=== PATIENT | female | born 1955 | race Two or more races ===

== ENCOUNTER 2025-08-03 11:12 | Inpatient (IN) | payer OTHER ==
[~2025-08-03] VITALS: Ht 157.5 cm; Wt 63.6 kg
--- NOTE | 2025-08-03 11:32 | ECG ---
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
--- NOTE | 2025-08-03 12:00 | ED.PDOC ---
HPI Comments 70y F who presents to the ED for chief complaint of chest pain. Pt states she has been having chest pain since yesterday. Pt states she came yesterday to [facility] and left AMA. Pt otherwise now in the ED, states she chest pain is pressure like in nature, with no associated exacerbating or relieving factors. Pt has noted BP of 155/75 with otherwise stable vitals. Pt denies any other symptoms at this time. Chief Complaint: Chest Pain Time Seen by MD: 11:56 Reviewed Notes: Nurses Notes, Medications, Allergies Allergies: Coded Allergies: NO KNOWN ALLERGIES (Unverified , 08/03/25) Information Source: Patient, Relative Mode of Arrival: Wheelchair Brought in by: family Severity: Moderate Timing: Hours Duration: Since onset Prehospital treatment: None Location: Chest (R), Chest (L) Radiation: No Radiation Quality: Pressure Onset: At Rest Cardiac Risk Factors: None PE Risk Factors: None History of: None Modifying Factors: Nothing Associated Signs and Symptoms: None Past Medical History PAST MEDICAL HISTORY: Dementia Surgical History: Denies all surgeries 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: Denies all WINDOWS PHONE DEVELOPER Hx Family History Family History: Reviewed,noncontributory to illness Social History Smoker: Non-Smoker Alcohol: Denies ETOH Use Drugs: Denies Drug Use Lives In: Home Constitutional: denies: chills, diaphoresis, fatigue, fever, malaise, sweats, weakness, others EENTM: denies: blurred vision, double vision, ear bleeding, ear discharge, ear drainage, ear pain, ear ringing, eye pain, eye redness, hearing loss, mouth pain, mouth swelling, nasal discharge, nose bleeding, nose congestion, nose pain, photophobia, tearing, throat pain, throat swelling, voice changes, others Respiratory: denies: cough, hemoptysis, orthopnea, SOB at rest, shortness of breath, SOB with excertion, stridor, wheezing, others Cardiovascular: reports: chest pain; denies: dizzy spells, diaphoresis, Dyspnea on exertion, edema, irregular heart beat, left arm pain, lightheadedness, palpitations, PND, syncope, others Gastrointestinal: denies: abdomen distended, abdominal pain, blood streaked bowels, constipated, diarrhea, dysphagia, difficulty swallowing, hematemesis, melena, nausea, poor appetite, poor fluid intake, rectal bleeding, rectal pain, vomiting, others Genitourinary: denies: abnormal vagina bleeding, burning, dyspareunia, dysuria, flank pain, frequency, hematuria, incontinence, pain, , vagina discharge, urgency, others Neurological: denies: dizziness, fainting, headache, left sided numbness, left sided weakness, numbness, paresthesia, pre-existing deficit, right sided numbness, right sided weakness, seizure, speech problems, tingling, tremors, weakness, others Musculoskeletal: denies: back pain, gout, joint pain, joint swelling, muscle pain, muscle stiffness, neck pain, others Integumetry: denies: bruises, change in color, change in hair/nails, dryness, laceration, lesions, lumps, rash, wounds, others Allergic/Immunocompromised: denies: Difficulty Healing, Frequent Infections, Hives, Itching, others Hematologic/Lymphatic: denies: anemia, blood clots, easy bleeding, easy bruising, swollen glands, others Endocrine: denies: excessive hunger, excessive sweating, excessive thirst, excessive urination, flushing, intolerance to cold, intolerance to heat, unexplained weight gain, unexplained weight loss, others Psychiatric: denies: anxiety, bipolar disorder, depression, hopeless, panic disorder, schizophrenia, sleepless, suicidal, others All Other Systems: Reviewed and Negative Physical Exam General Appearance: Moderate Distress HEENT: Normal ENT Inspection, Pharynx Normal, TMs Normal Neck: Full Range of Motion, Non-Tender, Normal, Normal Inspection Respiratory: Chest Non-Tender, Lungs Clear, No Accessory Muscle Use, No Respiratory Distress, Normal Breath Sounds Cardiovascular: No Edema, No JVD, No Murmur, No Gallop, Normal Peripheral Pulses, Regular Rate/Rhythm Breast Exam: Deferred Gastrointestinal: No Organomegaly, Non Tender, No Pulsatile Mass, Normal Bowel Sounds, Soft Genitalia: Deferred Pelvic: Deferred Rectal: Deferred Extremities: No calf tenderness, Normal capillary refill, No pedal edema Musculoskeletal : Apperance: Normal Neurologic: housekeeping coordinator II-XII nml as Tested, Motor Weakness, Normal Affect, Normal Mood, No Sensory Deficits Cerebellar Function: Normal Reflexes: Normal Skin: Dry, Normal Color, Warm Lymphatic: No Adenopathy EKG EKG : Pulse Rate (adult): 58 [place]: Normal Cardiac Rhythm: NSR Block: None Hypertrophy: None ST: Normal Was a procedure done? Was a procedure done?: No CP Differential Dx Differential Diagnosis: A-fib, Angina, Electrolyte Disorder, Heart Failure, OR, Pulmonary Embolus, PVC's Other Differential Diagnosis acute coronary syndrome Differential Diagnosis: HTN Essential, HTN Accelerated, Medical NonCompliance Differential Diagnosis: Chest Wall Pain, Pericarditis, Pneumonia X-Ray, Labs, Meds, VS Vital Signs Date Time Temp Pulse Resp B/P (MAP) Pulse Ox O2 Delivery O2 Flow Rate FiO2 08/03/25 14:17 64 08/03/25 12:23 56 08/03/25 12:00 58 08/03/25 11:20 58 08/03/25 11:12 98.4 61 18 155/75 98 98.4 Lab Test 08/03/25 13:02 Range/Units White Blood Count 6.3 4.4-10.8 10^3/uL Red Blood Count 4.24 4.0-5.20 10^6/uL Hemoglobin 12.8 12.2-16.2 g/dL Hematocrit 37.5 36.0-46.0 % Mean Corpuscular Volume 88.5 80.0-100.0 fL Mean Corpuscular Hemoglobin 30.3 28.0-32.0 pg Mean Corpuscular Hemoglobin Concent 34.2 32.0-36.0 g/dL Red Cell Distribution Width 13.9 11.8-14.3 % Platelet Count 202 140-450 10^3/uL Mean Platelet Volume 9.3 6.9-10.8 fL Neutrophils (%) (Auto) 44.9 37.0-80.0 % Lymphocytes (%) (Auto) 42.2 10.0-50.0 % Monocytes (%) (Auto) 9.9 0.0-12.0 % Eosinophils (%) (Auto) 2.2 0.0-7.0 % Basophils (%) (Auto) 0.8 0.0-2.0 % Neutrophils # (Auto) 2.8 1.6-8.6 10 ^3/uL Lymphocytes # (Auto) 2.6 0.4-5.4 10 ^3/uL Monocytes # (Auto) 0.6 0-1.3 10 ^3/uL Eosinophils # (Auto) 0.1 0-0.8 10 ^3/uL Basophils # (Auto) 0.1 0-0.2 10 ^3/uL Nucleated Red Blood Cells 0.0 % Sodium Level 146 H 136-145 mmol/L Potassium Level 3.7 3.5-5.1 mmol/L Chloride Level 111 H 98-107 mmol/L Carbon Dioxide Level 24 20-31 mmol/L Anion Gap 11 5-15 Blood Urea Nitrogen 7 L 9-23 mg/dL Creatinine 0.82 0.550-1.02 mg/dL Glomerular Filtration Rate Calc 76 >90 mL/min BUN/Creatinine Ratio 8.5 L 10.0-20.0 Serum Glucose 99 74-106 mg/dL Calcium Level 8.9 8.7-10.4 mg/dL Current Medications Medications (Trade) Dose Ordered Sig/Garrett Route Start Time Stop Time Status Last Admin Sodium Chloride 500 ml @ 500 mls/hr Q1H ONCE IV 08/03/25 11:30 08/03/25 12:29 DC 08/03/25 12:47 PROCEDURE(s): CXR2 - CHEST TWO VIEWS ROUTINE IMPRESSION: No pulmonary airspace consolidation. Large right paratracheal calcified lesion measuring 5.2 cm, possibly calcified lymph node. This can be further evaluated with a CT chest A CAT scan is recommended which be ordered by the hospitalist. The patient's CBC is within normal limits The chemistry panel with normal limits The patient was given normal saline 500 cc bolus The patient will be admitted at this time Images Reviewed?: Images reviewed and evaluated by me Time of 1ST Reevaluation: 12:30 Reevaluation 1ST: Unchanged Patient Education/Counseling: Diagnosis, Treatment, Prognosis Family Education/Counseling: No Family Present SEPSIS Sepsis Screen Date sepsis recognized/suspect: Aug 03, 2025 Time Sepsis recognized/suspect: 1138 Recent Procedure: No On Antibiotic Therapy: No Respiratory Rate >20: No Heart Rate >90: No Temp<36 C (96.8 F) or >38.3 C: No SBP <90 or MAP <65 mmHG: No New Acute Mental Status Change: No Is the patient on CPAP, BIPAP,: No Physician Orders Urinalysis (08/03/25 11:28) Chest Two Views Routine (08/03/25 11:28) Heplock Iv (08/03/25 11:28) Professional Housing Consultant (08/03/25 11:28) Blood Pressure (08/03/25 11:28) Pulse Oximetry (08/03/25 11:28) Vital Signs Date Time Temp Pulse Resp B/P (MAP) Pulse Ox O2 Delivery O2 Flow Rate FiO2 08/03/25 14:17 64 08/03/25 12:23 56 08/03/25 12:00 58 08/03/25 11:20 58 08/03/25 11:12 98.4 61 18 155/75 98 98.4 Laboratory Tests Test 08/03/25 13:02 White Blood Count 6.3 10^3/uL (4.4-10.8) Medications Medications Dose Ordered Sig/Garrett Route Start Time Stop Time Status Last Admin Dose Admin Sodium Chloride 500 ml @ 500 mls/hr Q1H ONCE IV 08/03/25 11:30 08/03/25 12:29 DC 08/03/25 12:47 Departure 1 Departure Time of Disposition: 14:45 Impression: Primary Impression: Acute chest pain Additional Impression: Acute myocardial ischemia Disposition: ADMITTED INPATIENT Admit to: Tele Condition: Fair Critical Care Note Critical Care Time?: No Stability Stability form required: Yes Unstable for transfer: Telemetry monitoring (Telemetry monitoring required), ED Physician Assesment (Clinical assesment) Heart Score Heart Score: Heart Score Response (Comments) Value History Slightly Suspicious 0 EKG Normal 0 Age >65 2 Risk Factors No known risk factors 0 Troponin Normal limit 0 Total 2 I personally scribed for SANDRO SOLIS MD (ATA) on 08/03/25 at 12:00. Elect ronically submitted by Samantha Owusu ([email or web address]). I personally scribed for SANDRO SOLIS MD (ATA) on 08/03/25 at 12:27. Electronically submitted by Samantha Owusu ([email or web address]). SANDRO SOLIS MD Aug 03, 2025 12:00
--- NOTE | 2025-08-03 12:24 | DVH ---
CHEST RADIOGRAPH Indication: weakness Technique: XY CHEST TWO VIEWS ROUTINE Comparison: None FINDINGS: The cardiac silhouette is demonstrating large right paratracheal calcified lesion measuring 5.2 cm. T he lungs demonstrate no pulmonary airspace consolidation. The pulmonary vasculature is unremarkable. There is no pleural effusion. There is no pneumothorax. Moderate thoracic degenerative disc disease. IMPRESSION: No pulmonary airspace consolidation. Large right paratracheal calcified lesion measuring 5.2 cm, possibly calcified lymph node. This can be further evaluated with a CT chest
[2025-08-03] MEDS: SODIUM CHLORIDE 0.9% 500 ML IV ONE (12:47)
[2025-08-03 13:24] LABS: Hematocrit 37.5 % (36.0-46.0); Hemoglobin 12.8 g/dL (12.2-16.2); Mean Corpuscular Hemoglobin 30.3 pg (28.0-32.0); Mean Corpuscular Volume 88.5 fL (80.0-100.0); Nucleated Red Blood Cells % 0.0 %
[2025-08-03 13:33] LABS: Anion Gap 11 (5-15); Carbon Dioxide 24 mmol/L (20-31); Potassium 3.7 mmol/L (3.5-5.1)
[2025-08-03 13:34] LABS: Calcium 8.9 mg/dL (8.7-10.4); Chloride 111 mmol/L (98-107); Sodium 146 mmol/L (136-145)
[2025-08-03 13:39] LABS: BUN/Creatinine Ratio 8.5 (10.0-20.0); Blood Urea Nitrogen 7 mg/dL (9-23); Glucose 99 mg/dL (74-106)
[2025-08-03] MEDS ORDERED: ONDANSETRON HCL 4 MG/2 ML VIAL IV PRN (16:00)
[2025-08-03] MEDS ORDERED: MORPHINE SULFATE INJ 2 MG/ml SYRG IV PRN (16:00)
[2025-08-03] MEDS ORDERED: NITROGLYCERIN 0.4 MG SL TAB SL PRN (16:00)
--- NOTE | 2025-08-03 16:37 | DVHHPRES ---
History of Present Illness Resident Creating Document: NESS GREEN RESIDENT History of Present Illness The patient is a 70-year-old female with dementia and anxiety disorder who presented yesterday with pressure-like anterior chest pain but left AMA. She returned today with persistent pain. She describes constant chest pressure radiating across the anterior chest and upper abdomen, with shortness of breath overnight, palpitations, dizziness/lightheadedness, generalized weakness, and decreased oral intake with weight loss. She denies nausea, vomiting, diaphoresis, cough, hemoptysis, or syncope. She has dementia with memory impairment, anxiety, and difficulty with decision- making, limiting reliability of history. Collateral information from her grandson suggests progressive functional decline and reduced appetite. ED findings: * Vitals: HR fluctuating 5864, BP 155/75, SpO? 98% RA. * Labs: CBC unremarkable; Hb 12.8, Plt 202, WBC 6.3. Na 146, K 3.7, Cr 0.82 (GFR 76). * EKG: minimal ST segment depression, sinus bradycardia. * CXR: right paratracheal calcified lesion 5.2 cm, consistent with calcified lymph node. * Treatment: NS bolus 500 mL IV. Admission Plan Given her chest pain with ischemic changes, risk factors, abnormal imaging, dementia, and functional decline, she is being admitted to Telemetry for ACS rule-out and monitoring, CT chest with contrast, serial cardiac enzymes, and cardiology evaluation. Initiated aspirin, statin, nitroglycerin PRN, morphine PRN, DVT prophylaxis, fall precautions, and cardiac diet. Past Medical History * Dementia * Anxiety disorder * Hypertension Past Surgical History * None reported Family History Non-contributory and patient unable to provide Past Social History * Currently staying in a hotel; grandson provides intermittent support. * Tobacco/alcohol history - NO. * Independent baseline unclear; reports functional decline recently. Review of Systems Review of Systems * Constitutional: Fatigue, weakness, weight loss, anorexia. No fevers, chills. * Cardiac: Chest pain, palpitations, dizziness. No syncope. * Respiratory: Dyspnea. No cough, hemoptysis. * GI: Anorexia, decreased intake. No N/V, no abdominal pain. * : No dysuria, hematuria. * Neuro: Dizziness, forgetfulness. No focal deficits. * Psych: Anxiety, impaired memory. * Skin/MSK: No rashes, joint swelling, or trauma. Allergies: Coded Allergies: NO KNOWN ALLERGIES (Unverified , 08/03/25) Medications Current Medications Medications Dose Ordered Sig/Garrett Route Start Time Stop Time Status Last Admin Dose Admin Ondansetron HCl 4 mg Q4HP PRN IV 08/03/25 16:00 UNV Enoxaparin Sodium 40 mg DAILY SC 08/04/25 10:00 UNV Acetaminophen 650 mg Q6HP PRN PO 08/03/25 16:00 Nitroglycerin 0.4 mg Q5MINP PRN SL 08/03/25 16:00 Morphine Sulfate 2 mg Q30M PRN IV 08/03/25 16:00 Losartan Potassium 50 mg DAILY PO 08/04/25 10:00 UNV Exam Vital Signs Vital Signs Date Time Temp Pulse Resp B/P (MAP) Pulse Ox O2 Delivery O2 Flow Rate FiO2 08/03/25 14:17 64 08/03/25 11:12 98.4 18 155/75 98 98.4 Exam General: Elderly female, anxious, mildly uncomfortable. Alert but forgetful. Vitals: HR 5864, BP 155/75, SpO? 98% RA, afebrile. Cardiac: Regular, bradycardic at times. S1/S2 audible, no murmur/rub/gallop. No JVD, no edema. Respiratory: Clear bilaterally, no wheezes or rales. No distress. Abdomen: Soft, non-tender, no hepatosplenomegaly. Neuro: Oriented 12. Memory impairment. No focal motor deficits. Psych: Anxious, difficulty describing symptoms. Skin: Warm, dry. No lesions. Labs/Xrays Labs Test 08/03/25 13:02 Range/Units White Blood Count 6.3 4.4-10.8 10^3/uL Red Blood Count 4.24 4.0-5.20 10^6/uL Hemoglobin 12.8 12.2-16.2 g/dL Hematocrit 37.5 36.0-46.0 % Mean Corpuscular Volume 88.5 80.0-100.0 fL Mean Corpuscular Hemoglobin 30.3 28.0-32.0 pg Mean Corpuscular Hemoglobin Concent 34.2 32.0-36.0 g/dL Red Cell Distribution Width 13.9 11.8-14.3 % Platelet Count 202 140-450 10^3/uL Mean Platelet Volume 9.3 6.9-10.8 fL Neutrophils (%) (Auto) 44.9 37.0-80.0 % Lymphocytes (%) (Auto) 42.2 10.0-50.0 % Monocytes (%) (Auto) 9.9 0.0-12.0 % Eosinophils (%) (Auto) 2.2 0.0-7.0 % Basophils (%) (Auto) 0.8 0.0-2.0 % Neutrophils # (Auto) 2.8 1.6-8.6 10 ^3/uL Lymphocytes # (Auto) 2.6 0.4-5.4 10 ^3/uL Monocytes # (Auto) 0.6 0-1.3 10 ^3/uL Eosinophils # (Auto) 0.1 0-0.8 10 ^3/uL Basophils # (Auto) 0.1 0-0.2 10 ^3/uL Nucleated Red Blood Cells 0.0 % Sodium Level 146 H 136-145 mmol/L Potassium Level 3.7 3.5-5.1 mmol/L Chloride Level 111 H 98-107 mmol/L Carbon Dioxide Level 24 20-31 mmol/L Anion Gap 11 5-15 Blood Urea Nitrogen 7 L 9-23 mg/dL Creatinine 0.82 0.550-1.02 mg/dL Glomerular Filtration Rate Calc 76 >90 mL/min BUN/Creatinine Ratio 8.5 L 10.0-20.0 Serum Glucose 99 74-106 mg/dL Calcium Level 8.9 8.7-10.4 mg/dL SEPSIS Sepsis Screen Date sepsis recognized/suspect: Aug 03, 2025 Time Sepsis recognized/suspect: 8 Recent Procedure: No On Antibiotic Therapy: No Respiratory Rate >20: No Heart Rate >90: No Temp<36 C (96.8 F) or >38.3 C: No SBP <90 or MAP <65 mmHG: No New Acute Mental Status Change: No Is the patient on CPAP, BIPAP,: No Physician Orders Urinalysis (08/03/25 11:28) Chest Two Views Routine (08/03/25 11:28) Heplock Iv (08/03/25 11:28) Air Quality Specialist (08/03/25 11:28) Blood Pressure (08/03/25 11:28) Pulse Oximetry (08/03/25 11:28) Admit (08/03/25 16:00) Code Status (08/03/25 16:00) Oxygen Per Hour (08/03/25 16:00) Ondansetron Hcl (Zofran) (08/03/25 16:00) Enoxaparin Sodium (Lovenox) (08/04/25 10:00) Fall Risk Precautions In Place QSHIFT (08/03/25 16:00) Complete Blood Count (08/04/25 04:00) Comprehensive Metabolic Panel (08/04/25 04:00) Cardiac Diet-2gna,Lofat,Lochol (08/03/25 Dinner) Echo 2d Mode Cardiac Dop (08/03/25 16:00) Condition: Unstable (08/03/25 16:00) Acetaminophen Tablet (Tylenol Tablet) (08/03/25 16:00) Nitroglycerin Sublingual (Ntrostat Subli (08/03/25 16:00) Morphine Sulfate Injection (08/03/25 16:00) Oxygen By Nasal Cannula (08/03/25 16:00) Stat Ekg For Chest Pain (08/03/25 16:00) Notify Md Of Changes From Base (08/03/25 16:00) Administrative Nursing Supervisor For 24 Hours (08/03/25 16:00) Emergency Dysrhythmia Protocol (08/03/25 16:00) Rhythm Strips Once Every Shift (08/03/25 16:00) Complete Blood Count (08/03/25 16:16) Comprehensive Metabolic Panel (08/03/25 16:16) Lactate Dehydrogenase (08/03/25 16:16) D-Dimer (08/03/25 16:16) Thyroid Stimulating Hormone (08/03/25 16:16) Chest With Contrast (08/03/25 16:16) Lipid Panel (08/03/25 16:32) Vitamin D, 25-Hydroxy (08/03/25 16:32) Uric Acid (08/03/25 16:32) Hemoglobin A1c (08/03/25 16:32) Losartan Tablet (Cozaar Tablet) (08/04/25 10:00) Vital Signs Date Time Temp Pulse Resp B/P (MAP) Pulse Ox O2 Delivery O2 Flow Rate FiO2 08/03/25 14:17 64 08/03/25 12:23 56 08/03/25 12:00 58 08/03/25 11:20 58 08/03/25 11:12 98.4 61 18 155/75 98 98.4 Laboratory Tests Test 08/03/25 13:02 White Blood Count 6.3 10^3/uL (4.4-10.8) Medications Medications Dose Ordered Sig/Garrett Route Start Time Stop Time Status Last Admin Dose Admin Sodium Chloride 500 ml @ 500 mls/hr Q1H ONCE IV 08/03/25 11:30 08/03/25 12:29 DC 08/03/25 12:47 500 MLS/HR Assessment/Plan Assessment/Plan Assessment 1. Acute Coronary Syndrome (Unstable Angina / suspected NSTEMI) * Chest pain, ischemic EKG changes, elderly age, HTN. * Rule in unstable angina; serial troponins to rule out NSTEMI. 2. Hypertension uncontrolled (BP 155/75). 3. Right paratracheal calcified lymph node lesion 4. Dementia baseline cognitive impairment, poor historian. 5. Anxiety disorder exacerbating perception of symptoms, compliance issues. 6. Generalized weakness and dizziness likely multifactorial (ACS vs poor intake vs anxiety). 7. Malnutrition risk (poor PO intake, weight loss) consult nutrition. Treatment Plan 1. ACS (UA/NSTEMI suspected) * Admit to Telemetry. * Aspirin 162 mg PO now, then 81 mg daily. * Atorvastatin 80 mg PO daily * Nitroglycerin 0.4 mg SL PRN chest pain. * Morphine 2 mg IV q30min PRN severe pain. * Serial troponins q6h 3, repeat EKGs. * 2D Echocardiogram to assess LV function/wall motion. 2. Hypertension * Resume home meds with Losartan 50 mg PO daily. * Monitor BP closely. 3. Paratracheal lesion * CT chest with contrast for evaluation. * Order LDH, uric acid, vitamin D profile, lipid panel, HbA1c. * Pulmonology consult if needed. 4. Dementia & Anxiety * Supportive care, frequent reorientation. * Avoid sedatives unless severe agitation. * Family involvement. 5. Malnutrition / poor intake * Nutrition consult. * Encourage oral intake; cardiac diet. * Check electrolytes daily. 6. Prophylaxis / Supportive Measures * DVT prophylaxis: Enoxaparin 40 mg SQ daily. * GI prophylaxis: Pantoprazole PO daily. * Fall precautions: Due to dementia and dizziness. * Telemetry monitoring. * Strict I/O, daily weights. Case discussed in detail with the attending physician, including the clinical presentation, diagnostic workup, and comprehensive management plan. The patient was present for the discussion and demonstrated understanding of her condition and the proposed plan. Patient verbally consented to hospital admission and agreed to the outlined evaluation and treatment strategies, including imaging, labs, medication initiation, specialist consultations, and supportive care. Plan discussed with: Patient, Other (Grandson) My Orders Orders - NESS GREEN RESIDENT Procedure Category Date Status Time Admit ADMIT 08/03/25 Transmitted 16:00 Code Status CODE 08/03/25 Transmitted 16:00 Oxygen Per Hour RT 08/03/25 Transmitted 16:00 Ondansetron Hcl PHA 08/03/25 Logged (Zofran) 16:00 Enoxaparin Sodium PHA 08/04/25 Logged (Lovenox) 10:00 Fall Risk Precautions LILA 08/03/[address] 16:00 Complete Blood Count LAB 08/04/25 Verified 04:00 Comprehensive LAB 08/04/25 Verified Metabolic Panel 04:00 Cardiac DIET 08/03/25 Transmitted Diet-2gna,Lofat,Lochol Dinner Echo 2d Mode Cardiac US 08/03/25 Logged DOP 16:00 Condition: Unstable LILA 08/03/25 In Process 16:00 Acetaminophen Tablet PHA 08/03/25 In Process (Tylenol Tablet) 16:00 Nitroglycerin PHA 08/03/25 In Process Sublingual (Ntrostat 16:00 Morphine Sulfate PHA 08/03/25 In Process Injection 16:00 Oxygen By Nasal RT 08/03/25 Transmitted Cannula 16:00 Stat Ekg For Chest LILA 08/03/25 In Process Pain 16:00 Notify Of Changes LILA 08/03/25 In Process From Base 16:00 Administrative Nursing Supervisor For LILA 08/03/25 In Process 24 Hours 16:00 Emergency Dysrhythmia LILA 08/03/25 In Process Protocol 16:00 Rhythm Strips Once LILA 08/03/25 In Process Every Shift 16:00 Complete Blood Count LAB 08/03/25 Logged 16:16 Comprehensive LAB 08/03/25 Logged Metabolic Panel 16:16 Lactate Dehydrogenase LAB 08/03/25 Logged 16:16 D-Dimer LAB 08/03/25 Logged 16:16 Thyroid Stimulating LAB 08/03/25 Logged Hormone 16:[address] 08/03/25 Logged 16:16 Lipid Panel LAB 08/03/25 Logged 16:32 Vitamin D, 25-Hydroxy LAB 08/03/25 Logged 16:32 Uric Acid LAB 08/03/25 Logged 16:32 Hemoglobin A1c LAB 08/03/25 Logged 16:32 Losartan Tablet PHA 08/04/25 Logged (Cozaar Tablet) 10:00 Date of Service: Aug 03, 2025 Billing Provider: JONATHAN MIRZA MD Common Visit Codes: [id number] INP/OBS CARE (HIGH) NESS GREEN RESIDENT Aug 03, 2025 16:37 JONATHAN MIRZA MD Aug 03, 2025 22:18
[2025-08-03 16:56] LABS: Thyroid Stimulating Hormone 2.02 uIU/mL (0.55-4.78)
[2025-08-03 17:04] LABS: Alanine Aminotransferase 17 U/L (7-40); Albumin 4.1 g/dL (3.2-4.8); Alkaline Phosphatase 48 U/L (46-116); Anion Gap 12 (5-15); BUN/Creatinine Ratio 9.3 (10.0-20.0); Bilirubin, Total 0.6 mg/dL (0.2-1.0); Calcium 8.9 mg/dL (8.7-10.4); Carbon Dioxide 22 mmol/L (20-31); Cholesterol 175 mg/dL (< 200); Glucose 98 mg/dL (74-106); Potassium 3.7 mmol/L (3.5-5.1); Total Protein 7.0 g/dL (5.7-8.2)
[2025-08-03 17:05] LABS: Blood Urea Nitrogen 8 mg/dL (9-23); Chloride 112 mmol/L (98-107); HDL Cholesterol 31 mg/dL (40-59); Sodium 146 mmol/L (136-145); Triglycerides 150 mg/dL (< 150)
[2025-08-03 17:14] VITALS: PULSE 65; RESP 18; O2SAT 97
[2025-08-03 17:14] LABS: Uric Acid 6.0 mg/dL (3.1-7.8)
--- NOTE | 2025-08-03 17:14 | DVH ---
Procedure: CT CHEST WITH CONTRAST 08/03/2025 04:30 PM History: The paratracheal calcified lymph node Comparison: XY CHEST TWO VIEWS ROUTINE on DOS: 08/03/25 Technique: After the uneventful administration of contrast intravenously, CT imaging was performed th rough the chest. Coronal and sagittal reformations were performed by the technologist. 3D image postprocessing was performed on a dedicated workstation and images were used for interpretat ion and reporting. Radiation Dose : CT Dose: CTDI volume is 11.8 mGy. Dose-length product is 424 mGy*cm CONTRAST: Type of contrast: Omnipaque 350 Contrast injected: 100 ml Findings: Lower neck: Normal thyroid. Lungs: No focal consolidation. Heart/Vascular Structures: Normal heart size. No pericardial effusion. Lymph Nodes: Large calcified granuloma is seen in the right paratracheal region measuring up to 3.7 c m. Pleura: No pleural effusion or significant pneumothorax. Musculoskeletal: No acute osseous abnormality. Soft tissues: Normal. Upper abdomen: Limited portions of the upper abdomen are unremarkable. IMPRESSION: 1. No acute cardiopulmonary disease. 2. Large calcified granuloma is seen in the right paratracheal region measuring up to 3.7 cm.
[2025-08-03] MEDS: ATORVASTATIN 20 MG TAB PO ONE (17:42)
[2025-08-03] MEDS: hydrALAZINE HCL 20 MG/ML VL IV PRN (20:49)
[2025-08-03 21:01] LABS: Urine Protein, UAD Negative (Negative)
[2025-08-03] MEDS: IOHEXOL 300 MG/ML 100ML BOTTLE IJ ONE (21:18)
[2025-08-03 22:25] VITALS: BP 135/79; PULSE 78; RESP 16; TEMP 97.9; O2SAT 98
[2025-08-03 22:46] VITALS: PULSE 79; RESP 16; O2SAT 98
[2025-08-04 01:00] VITALS: BP 126/58; PULSE 74; RESP 17; TEMP 97.4; O2SAT 98
[2025-08-04] MEDS: ACETAMINOPHEN 325 MG TAB PO PRN (04:03)
[2025-08-04 05:00] VITALS: BP 133/73; PULSE 77; RESP 17; TEMP 97.2; O2SAT 98
[2025-08-04 06:15] LABS: Hematocrit 38.5 % (36.0-46.0); Hemoglobin 13.5 g/dL (12.2-16.2); Mean Corpuscular Hemoglobin 30.3 pg (28.0-32.0); Mean Corpuscular Volume 86.9 fL (80.0-100.0); Nucleated Red Blood Cells % 0.0 %
[2025-08-04 06:36] LABS: Alanine Aminotransferase 17 U/L (7-40); Albumin 4.2 g/dL (3.2-4.8); Alkaline Phosphatase 50 U/L (46-116); Anion Gap 13 (5-15); BUN/Creatinine Ratio 6.6 (10.0-20.0); Calcium 9.4 mg/dL (8.7-10.4); Carbon Dioxide 23 mmol/L (20-31); Glucose 94 mg/dL (74-106); Sodium 144 mmol/L (136-145); Total Protein 7.1 g/dL (5.7-8.2)
[2025-08-04 06:37] LABS: Bilirubin, Total 1.0 mg/dL (0.2-1.0)
[2025-08-04 06:40] LABS: Blood Urea Nitrogen 5 mg/dL (9-23); Chloride 108 mmol/L (98-107); Potassium 3.0 mmol/L (3.5-5.1)
[2025-08-04 08:00] VITALS: PULSE 151
[2025-08-04 09:00] VITALS: BP 102/66; PULSE 66; RESP 18; TEMP 97.9; O2SAT 97
[2025-08-04] MEDS: POTASSIUM CHL 20 Meq TABLET PO ONE (09:01)
[2025-08-04] MEDS: ENOXAPARIN SOD 40 MG/0.4 ML SYRINGE SC SCH (09:01)
[2025-08-04] MEDS: LOSARTAN POTASSIUM 50 MG TAB PO SCH (09:02)
--- NOTE | 2025-08-04 12:43 | DVHPNRES ---
Progress Note Date Seen: Aug 04, 2025 Resident Creating Document: COCO RESENDIZ RESIDENT Objective vital signs Vital Sign Date Time Temp Pulse Resp B/P (MAP) Pulse Ox O2 Delivery O2 Flow Rate FiO2 08/04/25 09:02 102/66 08/04/25 09:00 97.9 66 18 97 97.9 08/04/25 08:00 Room Air* 0 21 Total Intake and Output 08/03/25 08/03/25 08/04/25 15:00 23:00 07:00 Intake Total 125 ml Output Total 550 ml Balance -425 ml medications Current Medications Medications Dose Ordered Sig/Garrett Route Start Time Stop Time Status Last Admin Dose Admin Ondansetron HCl 4 mg Q4HP PRN IV 08/03/25 16:00 Enoxaparin Sodium 40 mg DAILY SC 08/04/25 10:00 08/04/25 09:01 40 MG Acetaminophen 650 mg Q6HP PRN PO 08/03/25 16:00 08/04/25 04:03 650 MG Nitroglycerin 0.4 mg Q5MINP PRN SL 08/03/25 16:00 Morphine Sulfate 2 mg Q30M PRN IV 08/03/25 16:00 Losartan Potassium 50 mg DAILY PO 08/04/25 10:00 08/04/25 09:02 50 MG Nifedipine 30 mg HS PO 08/03/25 22:00 08/03/25 22:00 30 MG Aspirin 81 mg DAILY PO 08/04/25 10:00 08/04/25 09:02 81 MG Atorvastatin Calcium 40 mg HS PO 08/04/25 22:00 Examination General examination- HEENT- PEERLA, no acute nasal discharge Cardiovascular- S1-S2 audible, rate and rhythm regular, no murmur Respiratory- CTAB, no wheeze or rhonchi Gastrointestinal-nontender, bowel sound+. Nondistended Musculoskeletal-no acute joint swelling or tenderness or redness Lower extremity- Neurological- cranial nerves intact, no acute dysarthria or dysphagia Psychiatry- denies depression or SI or HI Skin- no acute rash or purpura laboratory and microbiology Laboratory Tests 08/04/25 05:35 Test 08/04/25 05:35 Range/Units Serum Glucose 94 74-106 mg/dL Problem List/Assessment/Plan Problem List/Assessment/Plan Assessment and plan # acute chest pain, rule out acute coronary syndrome -EKG no acute ST-T changes -troponin I elevated troponin I - 31> 47> 39 -pending echo 2D- -continue aspirin 81 mg p.o. daily -continue atorvastatin 40 mg p.o. q.h.s. -continue losartan 50 mg p.o. daily -continue nifedipine 30 mg p.o. q.h.s. # Hypertension -continue losartan 50 mg p.o. daily -continue nifedipine 30 mg p.o. q.h.s. # hypokalemia replenished -monitor BMP # Right paratracheal granulomatous calcified lymph node lesion -ordered Pulmonary consult for further evaluation # Dementia baseline cognitive impairment, poor historian. # Anxiety disorder exacerbating perception of symptoms, compliance issues. #Generalized weakness and dizziness likely multifactorial (ACS vs poor intake vs anxiety #Malnutrition risk - (poor PO intake, weight loss) consult nutrition. Goals of care, Code status full code ; discussed with >15 minutes PUD prophylaxis: Pantoprazole DVT prophylaxis: Lovenox Plan discussed with Dr. Najera , nursing staff, Total time spent on patient evaluation, chart review, assessment and plan, discussion discussion >35 minutes Plan discussed with: Patient, Other (RN) My Orders My Orders Orders - COCO RESENDIZ Procedure Category Date Status Time *Consult CONS 08/04/25 Transmitted 10:06 COCO RESENDIZ RESIDENT Aug 04, 2025 12:43
[2025-08-04 13:00] VITALS: BP 119/76; PULSE 77; RESP 17; TEMP 97.8; O2SAT 96
--- NOTE | 2025-08-04 15:37 | DVHSR ---
APPROVED REPORT EXAM: Two-dimensional and M-mode echocardiogram with Doppler and color Doppler. Blood Pressure: 133/73 mmHg INDICATION Evaluate for structural heart disease RISK FACTORS Height: 5'2", Weight: 140 DIMENSIONS LVDd4.5 (3.8-5.7cm)LA (2D)3.8 (1.9-4.0cm)Aortic Root2.9 (2.0-3.7cm) LVDs2.6 (2.5-4.0cm)LA (MM) (1.9-4.0cm)Aortic Cusp Exc1.9 (1.5-2.0cm) EF (%) 73.0 (55-70%)Rt. Atrium3.3 (1.9-4.0cm)Asc. Aorta cm IVSd0.9 (0.7-1.1cm)RV (D)2.6 (1.8-2.4cm) PWd0.6 (0.7-1.1cm) Mitral Valve MitralMitral Stenosis E wave0.61m/sMV Mean GR.mmHg A wave0.78m/sMV Peak GR.mmHg E/A ratio0.82D MVAcm2 DECEL [id number] 1/2 Tim[place] Aortic Valve Aortic ValveAortic Stenosis V11.12m/Donn Mean GR.4mmHg V21.39m/Donn Peak GR.8mmHg LVOT Diameter2.0 (1.8-2.4cm)Doppler AVA2.53cm2 Tricuspid Valve TR Velocity2.06m/s [id number] Other Information Quality : Technically LimitedRhythm : Technically limited study due to body habitus. Conclusion lvef 55-60% normal rv function left atrium enlarged moderate no severe valve abnormalities noted
--- NOTE | 2025-08-04 18:20 | DVHDSRES ---
Discharge Summary Date of Admission Resident Creating Document: COCO RESENDIZ RESIDENT Aug 03, 2025 at 16:00 Date of Discharge: Aug 04, 2025 Admitting Diagnosis Acute chest pain, rule out acute coronary Labs/Diagnostic Data: Laboratory Results Test 08/04/25 05:35 08/04/25 00:46 08/03/25 19:36 08/03/25 13:02 White Blood Count 6.4 10^3/uL (4.4-10.8) Red Blood Count 4.44 10^6/uL (4.0-5.20) Hemoglobin 13.5 g/dL (12.2-16.2) Hematocrit 38.5 % (36.0-46.0) Mean Corpuscular Volume 86.9 fL (80.0-100.0) Mean Corpuscular Hemoglobin 30.3 pg (28.0-32.0) Mean Corpuscular Hemoglobin Concent 34.9 g/dL (32.0-36.0) Red Cell Distribution Width 13.7 % (11.8-14.3) Platelet Count 201 10^3/uL (140-450) Mean Platelet Volume 9.1 fL (6.9-10.8) Neutrophils (%) (Auto) 56.9 % (37.0-80.0) Lymphocytes (%) (Auto) 29.9 % (10.0-50.0) Monocytes (%) (Auto) 9.5 % (0.0-12.0) Eosinophils (%) (Auto) 3.0 % (0.0-7.0) Basophils (%) (Auto) 0.7 % (0.0-2.0) Neutrophils # (Auto) 3.6 10 ^3/uL (1.6-8.6) Lymphocytes # (Auto) 1.9 10 ^3/uL (0.4-5.4) Monocytes # (Auto) 0.6 10 ^3/uL (0-1.3) Eosinophils # (Auto) 0.2 10 ^3/uL (0-0.8) Basophils # (Auto) 0 10 ^3/uL (0-0.2) Nucleated Red Blood Cells 0.0 % Sodium Level 144 mmol/L (136-145) Potassium Level 3.0 mmol/L (3.5-5.1) Chloride Level 108 mmol/L (98-107) Carbon Dioxide Level 23 mmol/L (20-31) Anion Gap 13 (5-15) Blood Urea Nitrogen 5 mg/dL (9-23) Creatinine 0.76 mg/dL (0.550-1.02) Glomerular Filtration Rate Calc 83 mL/min (>90) BUN/Creatinine Ratio 6.6 (10.0-20.0) Serum Glucose 94 mg/dL (74-106) Calcium Level 9.4 mg/dL (8.7-10.4) Total Bilirubin 1.0 mg/dL (0.2-1.0) Aspartate Amino Transferase (AST) 24 U/L (13-40) Alanine Aminotransferase (ALT) 17 U/L (7-40) Alkaline Phosphatase 50 U/L (46-116) Total Protein 7.1 g/dL (5.7-8.2) Albumin 4.2 g/dL (3.2-4.8) Troponin I High Sensitivity 39 ng/L (</=34) Urine Color Light-yellow (Yellow) Urine Clarity Clear (Clear) Urine pH 6.0 (5.0-9.0) Urine Specific [place] 1.038 (1.001-1.035) Urine Protein Negative (Negative) Urine Ketones Trace (Negative) Urine Blood Negative /uL (Negative) Urine Nitrite Negative (Negative) Urine Bilirubin Negative (Negative) Urine Urobilinogen Normal mg/dL (Negative) Urine Leukocyte Esterase Negative /uL (Negative) Urine RBC 2 /hpf (0 - 4) Urine Microscopic WBC < 1 /HPF (0-5) Urine Squamous Epithelial Cells None seen /hpf (<5) Urine Bacteria None seen /hpf (None Seen) Urine Glucose Normal mg/dL (Normal) D-Dimer, Quantitative 0.23 mg/L FEU (0.0-0.49) Hemoglobin A1c 5.2 % A1C (<5.7) Uric Acid 6.0 mg/dL (3.1-7.8) Lactate Dehydrogenase 189 U/L (120-246) Triglycerides Level 150 mg/dL (< 150) Cholesterol Level 175 mg/dL (< 200) LDL Cholesterol 132 mg/dL (< 100) HDL Cholesterol 31 mg/dL (40-59) Vitamin D 25-Hydroxy 27.8 ng/mL (30.0-100) Thyroid Stimulating Hormone (TSH) 2.02 uIU/mL (0.55-4.78) Other Laboratory Tests 08/04/25 05:35 Brief Hx & Hospital Course: The patient is a 70-year-old female with dementia and anxiety disorder who presented yesterday with pressure-like anterior chest pain but left AMA. She returned today with persistent pain. She describes constant chest pressure radiating across the anterior chest and upper abdomen, with shortness of breath overnight, palpitations, dizziness/lightheadedness, generalized weakness, and decreased oral intake with weight loss. She denies nausea, vomiting, diaphoresis, cough, hemoptysis, or syncope. She has dementia with memory impairment, anxiety, and difficulty with decision-making, limiting reliability of history. Collateral information from her grandson suggests progressive functional decline and reduced appetite. ED findings: EKG: minimal ST segment depression, sinus bradycardia. CXR: right paratracheal calcified lesion 5.2 cm, consistent with calcified lymph node. Lab workup revealed troponin I 31> 47> 39. Echo 2D revealed 55-60%. Ordered Pulmonary consult for right-sided paratracheal granulomatous calcification for further evaluation and care. Patient left AMA. Patient's condition was undetermined on discharge. Operations or Procedures [place] [id number] Ph: [phone] DIAGNOSTIC IMAGING Diagnostic Imaging Report : [id number] Signed PATIENT: PRASANTH BAUM ACCT: [id number] UNIT: [id number] : 1955 LOC: ER ROOM / BED: / AGE / SEX: 70 / F ADM STATUS: REG ER SERVICE 1128 ORDERING PHYSICIAN: SANDRO SOLIS MD PROCEDURE(s): CXR2 - CHEST TWO VIEWS ROUTINE REASON: weakness ORDER NUMBER(s): [id number], ACCESSION NUMBER(s): [id number] CHEST RADIOGRAPH Indication: weakness Technique: XY CHEST TWO VIEWS ROUTINE Comparison: None FINDINGS: The cardiac silhouette is demonstrating large right paratracheal calcified lesion measuring 5.2 cm. The lungs demonstrate no pulmonary airspace consolidation. The pulmonary vasculature is unremarkable. There is no pleural effusion. There is no pneumothorax. Moderate thoracic degenerative disc disease. IMPRESSION: No pulmonary airspace consolidation. Large right paratracheal calcified lesion measuring 5.2 cm, possibly calcified lymph node. This can be further evaluated with a CT chest ATED BY: ADILIA YEH MD DICTATED DATE/TIME: 08/03/251224 SIGNED BY: ADILIA YEH MD SIGNED DATE/TIME: 08/03/251224 CC: [place] [id number] Ph: [phone] DIAGNOSTIC IMAGING Diagnostic Imaging Report : [id number] Signed PATIENT: PRASANTH BAUM ACCT: [id number] UNIT: [id number] : 1955 LOC: OVERFLOW ROOM / BED: [address] [place] [address] AGE / SEX: 70 / F ADM STATUS: ADM IN SERVICE 15 ORDERING PHYSICIAN: NESS GREEN RESIDENT PROCEDURE(s): CXICT - CHEST WITH CONTRAST REASON: The paratracheal calcified lymph node ORDER NUMBER(s): [id number], ACCESSION NUMBER(s): [id number] Procedure: CT CHEST WITH CONTRAST 08/03/2025 04:30 PM History: The paratracheal calcified lymph node Comparison: XY CHEST TWO VIEWS ROUTINE on DOS: 08/03/25 Technique: After the uneventful administration of contrast intravenously, CT imaging was performed through the chest. Coronal and sagittal reformations were performed by the technologist. 3D image postprocessing was performed on a dedicated workstation and images were used for interpretation and reporting. Radiation Dose : CT Dose: CTDI volume is 11.8 mGy. Dose-length product is 424 mGy*cm CONTRAST: Type of contrast: Omnipaque 350 Contrast injected: 100 ml Findings: Lower neck: Normal thyroid. Lungs: No focal consolidation. Heart/Vascular Structures: Normal heart size. No pericardial effusion. Lymph Nodes: Large calcified granuloma is seen in the right paratracheal region measuring up to 3.7 cm. Pleura: No pleural effusion or significant pneumothorax. Musculoskeletal: No acute osseous abnormality. Soft tissues: Normal. Upper abdomen: Limited portions of the upper abdomen are unremarkable. IMPRESSION: 1. No acute cardiopulmonary disease. 2. Large calcified granuloma is seen in the right paratracheal region measuring up to 3.7 cm. ATED BY: ZAHRA TABOR MD DICTATED DATE/TIME: 08/03/251710 SIGNED BY: ZAHRA TABOR MD SIGNED DATE/TIME: 08/03/251710 CC: [address] [address] Ph: [phone] DIAGNOSTIC IMAGING Diagnostic Imaging Report : [id number] Signed PATIENT: PRASANTH BAUM ACCT: [id number] UNIT: [id number] : 1955 LOC: [facility] ROOM / BED: [address] [place] [address] AGE / SEX: 70 / F ADM STATUS: ADM IN SERVICE 1600 ORDERING PHYSICIAN: NESS GREEN RESIDENT PROCEDURE(s): ECIDC - ECHO 2D MODE CARDIAC DOP REASON: Evaluate for structural heart disease ORDER NUMBER(s): [id number], ACCESSION NUMBER(s): [id number] APPROVED REPORT EXAM: Two-dimensional and M-mode echocardiogram with Doppler and color Doppler. Blood Pressure: 133/73 mmHg INDICATION Evaluate for structural heart disease RISK FACTORS Height: 5'2", Weight: 140 DIMENSIONS LVDd 4.5 (3.8-5.7cm) LA (2D) 3.8 (1.9-4.0cm) Aortic Root 2.9 (2.0- 3.7cm) LVDs 2.6 (2.5-4.0cm) LA (MM) (1.9-4.0cm) Aortic Cusp Exc 1.9 (1.5- 2.0cm) EF (%) 73.0 (55-70%) Rt. Atrium 3.3 (1.9-4.0cm) Asc. Aorta cm IVSd 0.9 (0.7-1.1cm) RV (D) 2.6 (1.8-2.4cm) PWd 0.6 (0.7-1.1cm) Mitral Valve Mitral Mitral Stenosis E wave 0.61m/s MV Mean GR. mmHg A wave 0.78m/s MV Peak GR. mmHg E/A ratio 0.8 2D MVA cm2 DECEL Time 250ms PRESS 1/2 Time ms Aortic Valve Aortic Valve Aortic Stenosis V1 1.12m/s AO Mean GR. 4mmHg V2 1.39m/s AO Peak GR. 8mmHg LVOT Diameter 2.0 (1.8-2.4cm) Doppler MAAME 2.53cm2 Tricuspid Valve TR Velocity 2.06m/s RVSP 20mmHg Other Information Quality : Technically Limited Rhythm : Technically limited study due to body habitus. Conclusion lvef 55-60% normal rv function left atrium enlarged moderate no severe valve abnormalities noted SIGNED BY: COLLIN ASHLEY MD SIGNED DATE/TIME: 08/04/25 5100 CC: Condition at Discharge: Undetermined Final Diagnosis/Problems List # acute chest pain, rule out acute coronary syndrome # Hypertension # hypokalemia replenished # Right paratracheal granulomatous calcified lymph node lesion # Dementia # Anxiety disorder #Generalized weakness and dizziness #Malnutrition risk Discharge Disposition: AMA Discharge Instruct/Medications Follow Up/Referral: Patient left AMA Medications: Patient left AMA Discharge Statement: "Patient was advised to return to the ER or call 911 if any headaches, dizziness, shortness of breath, chest pain, abdominal pain, bleeding, fevers, or worsening of medical condition. Patient was counseled about treatment plan, medications, possible side effects, patientverbalized understanding. All questions were answered to the best of my ability. This discharge took greater then 30 minutes in planning, reviewing documentation, counseling the patient, and discussing with other team members." ASSESSMENT ASSESSMENT Assessment Date of Service: Aug 04, 2025 Billing Provider: JONATHAN MIRZA MD Common Visit Codes: 84063-PPJ/OBS DISCH DAY >30min COCO RESENDIZ Aug 04, 2025 18:20 JONATHAN MIRZA MD Aug 05, 2025 19:55
[2025-08-04] MEDS ORDERED: ATORVASTATIN 20 MG TAB PO SCH (22:00)
== END 2025-08-04 16:31 | disposition left against medical advice (07) | DRG 282 ==
LOC: ER 11:17 → OVERFLOW 16:00 → TELE-WESTW 21:43
PROVIDERS: ADMIT Student in an Organized Health Care Education/Training Program; ATTEND Student in an Organized Health Care Education/Training Program
DX: I16.0 Hypertensive urgency (principal); I21.A1 Myocardial infarction type 2; I10 Essential (primary) hypertension; F03.90 Unspecified dementia, unspecified severity, without behavioral disturbance, psychotic disturbance, mood disturbance, and anxiety; E87.6 Hypokalemia; F41.9 Anxiety disorder, unspecified; Z53.29 Procedure and treatment not carried out because of patient's decision for other reasons; Z79.899 Other long term (current) drug therapy; Z68.25 Body mass index [BMI] 25.0-25.9, adult
CPT/HCPCS: 36415; 71046; 71260; 80048; 80053; 80061; 81001; 82306; 83036; 83615; 84443; 84484; 84550; 85025; 85379; 93005; 93306; 96374; G0378

== ENCOUNTER 2025-09-19 08:32 | Emergency (ER) | payer MEDICARE, OTHER ==
[~2025-09-19] VITALS: Ht 157.5 cm; Wt 59.4 kg
[2025-09-19 08:33] VITALS: BP 130/74; RESP 17; TEMP 97.4; O2SAT 97
[2025-09-19 08:43] VITALS: PULSE 56
--- NOTE | 2025-09-19 08:44 | ECG ---
[facility] Test Date: 2025-09-19 Test Time: 08:43:25 Pat Name: PRASANTH BAUM Department: ED Room: [address] [place] [address] Gender: F [employer] Att[employer]: JAS : 1955 Requested By: ANDERS WEBB Order Number: [id number] Reading MD: Kory Aguilar Measurements Intervals [place] Rate: 56 P: 54 IA: 144 QRS: 64 QRSD: 80 T: 30 QT: 459 QTc: 444 Interpretive Statements Sinus rhythm Borderline ST depression, diffuse leads Electronically Signed On 09-20-2025 17:57:47 PST by Kory Aguilar Please click the below link to view image of tracing.
--- NOTE | 2025-09-19 09:04 | ED.PDOC ---
History of Present Illness HPI Comments 70-year-old female with PMHx Dementia who presents to the ED with a chief complaint of generalized weakness onset 1 day. Patient states she has been experiencing generalized weakness for the past day as well as decreased appetite, lack of energy, chest pressure. She experienced similar symptoms in the past, had an ED, was discharged with no diagnosis. Denies fever, chills, cough, cold, congestion, shortness of breath, dizziness, headache, abdominal pain, nausea, vomiting, diarrhea. No other symptoms or modifying factors present at this time. Chief Complaint: General Weakness Time Seen by MD: 09:58 Reviewed Notes: Medications, Allergies Allergies: Coded Allergies: NO KNOWN ALLERGIES (Unverified , 08/03/25) Information Source: Patient Mode of Arrival: Ambulatory Severity: Moderate Timing: Days Duration: Since onset Prehospital treatment: None Past Medical History PAST MEDICAL HISTORY: Dementia Surgical History: Denies all surgeries [employer] History: Denies all [employer] Hx Family History Family History: Reviewed,noncontributory to illness Social History Smoker: Non-Smoker Alcohol: Denies ETOH Use Drugs: Denies Drug Use Lives In: Home Constitutional: reports: weakness; denies: chills, diaphoresis, fatigue, fever, malaise, sweats, others EENTM: denies: blurred vision, double vision, ear bleeding, ear discharge, ear drainage, ear pain, ear ringing, eye pain, eye redness, hearing loss, mouth pain, mouth swelling, nasal discharge, nose bleeding, nose congestion, nose pain, photophobia, tearing, throat pain, throat swelling, voice changes, others Respiratory: denies: cough, hemoptysis, orthopnea, SOB at rest, shortness of breath, SOB with excertion, stridor, wheezing, others Cardiovascular: reports: chest pain (pressure); denies: dizzy spells, diaphoresis, Dyspnea on exertion, edema, irregular heart beat, left arm pain, lightheadedness, palpitations, PND, syncope, others Gastrointestinal: reports: poor appetite; denies: abdomen distended, abdominal pain, blood streaked bowels, constipated, diarrhea, dysphagia, difficulty swallowing, hematemesis, melena, nausea, poor fluid intake, rectal bleeding, rectal pain, vomiting, others Genitourinary: denies: abnormal vagina bleeding, burning, dyspareunia, dysuria, flank pain, frequency, hematuria, incontinence, pain, , vagina discharge, urgency, others Neurological: reports: weakness; denies: dizziness, fainting, headache, left sided numbness, left sided weakness, numbness, paresthesia, pre-existing deficit, right sided numbness, right sided weakness, seizure, speech problems, tingling, tremors, others Musculoskeletal: denies: back pain, gout, joint pain, joint swelling, muscle pain, muscle stiffness, neck pain, others Integumetry: denies: bruises, change in color, change in hair/nails, dryness, laceration, lesions, lumps, rash, wounds, others Allergic/Immunocompromised: denies: Difficulty Healing, Frequent Infections, Hives, Itching, others Hematologic/Lymphatic: denies: anemia, blood clots, easy bleeding, easy bruising, swollen glands, others Endocrine: denies: excessive hunger, excessive sweating, excessive thirst, excessive urination, flushing, intolerance to cold, intolerance to heat, unexplained weight gain, unexplained weight loss, others Psychiatric: denies: anxiety, bipolar disorder, depression, hopeless, panic disorder, schizophrenia, sleepless, suicidal, others All Other Systems: Reviewed and Negative Physical Exam General Appearance: Normal HEENT: Normal ENT Inspection, Pharynx Normal, TMs Normal Neck: Full Range of Motion, Non-Tender, Normal, Normal Inspection Respiratory: Chest Non-Tender, Lungs Clear, No Accessory Muscle Use, No Respiratory Distress, Normal Breath Sounds Cardiovascular: No Edema, No JVD, No Murmur, No Gallop, Normal Peripheral Pulses, Regular Rate/Rhythm Breast Exam: Deferred Gastrointestinal: No Organomegaly, Non Tender, No Pulsatile Mass, Normal Bowel Sounds, Soft Genitalia: Deferred Pelvic: Deferred Rectal: Deferred Extremities: No calf tenderness, Normal capillary refill, Normal inspection, Normal range of motion, Non-tender, No pedal edema Musculoskeletal : Apperance: Normal Neurologic: Alert, agile scrum coach II-XII nml as Tested, No Motor Deficits, Normal Affect, Normal Mood, No Sensory Deficits Cerebellar Function: Normal Reflexes: Normal Skin: Dry, Normal Color, Warm Lymphatic: No Adenopathy Was a procedure done? Was a procedure done?: No Differential Dx Considerations may include: ACS, CVA, viral syndrome, electrolyte abnormality, infectious etiology X-Ray, Labs, Meds, VS Vital Signs Date Time Temp Pulse Resp B/P (MAP) Pulse Ox O2 Delivery O2 Flow Rate FiO2 09/19/25 08:43 56 09/19/25 08:33 97.4 77 17 130/74 97 97.4 Lab Test 09/19/25 13:10 09/19/25 11:00 09/19/25 09:28 09/19/25 09:24 Range/Units Troponin I High Sensitivity Pending 26 27 </=34 ng/L Sodium Level 144 136-145 mmol/L Potassium Level 3.6 3.5-5.1 mmol/L Chloride Level 106 98-107 mmol/L Carbon Dioxide Level 27 20-31 mmol/L Anion Gap 11 5-15 Blood Urea Nitrogen 8 L 9-23 mg/dL Creatinine 0.98 0.550-1.02 mg/dL Glomerular Filtration Rate Calc 61 >90 mL/min BUN/Creatinine Ratio 8.2 L 10.0-20.0 Serum Glucose 98 74-106 mg/dL Calcium Level 10.2 8.7-10.4 mg/dL White Blood Count 5.4 4.4-10.8 10^3/uL Red Blood Count 4.69 4.0-5.20 10^6/uL Hemoglobin 14.1 12.2-16.2 g/dL Hematocrit 41.9 36.0-46.0 % Mean Corpuscular Volume 89.5 80.0-100.0 fL Mean Corpuscular Hemoglobin 30.0 28.0-32.0 pg Mean Corpuscular Hemoglobin Concent 33.5 32.0-36.0 g/dL Red Cell Distribution Width 13.7 11.8-14.3 % Platelet Count 237 140-450 10^3/uL Mean Platelet Volume 9.0 6.9-10.8 fL Neutrophils (%) (Auto) 56.1 37.0-80.0 % Lymphocytes (%) (Auto) 32.4 10.0-50.0 % Monocytes (%) (Auto) 9.0 0.0-12.0 % Eosinophils (%) (Auto) 1.5 0.0-7.0 % Basophils (%) (Auto) 1.0 0.0-2.0 % Neutrophils # (Auto) 3.0 1.6-8.6 10 ^3/uL Lymphocytes # (Auto) 1.7 0.4-5.4 10 ^3/uL Monocytes # (Auto) 0.5 0-1.3 10 ^3/uL Eosinophils # (Auto) 0.1 0-0.8 10 ^3/uL Basophils # (Auto) 0.1 0-0.2 10 ^3/uL Nucleated Red Blood Cells 0.1 % [facility] [id number] [place] [address] Ph: [phone] DIAGNOSTIC IMAGING Diagnostic Imaging Report : [id number] Signed PATIENT: PRASANTH BAUM ACCT: [id number] UNIT: [id number] : 1955 LOC: ER ROOM / BED: / AGE / SEX: 70 / F ADM STATUS: REG ER SERVICE 2 ORDERING PHYSICIAN: ANDERS WEBB MD PROCEDURE(s): CXRP - CHEST PORTABLE REASON: cp ORDER NUMBER(s): [id number], ACCESSION NUMBER(s): [id number] EXAM: XY CHEST PORTABLE Indication: cp Technique: Single frontal view of the chest was obtained Comparison: CT CHEST WITH CONTRAST on DOS: 08/03/25, XY CHEST TWO VIEWS ROUTINE on DOS: 08/03/25 FINDINGS: Lines and Tubes: None Lungs: No focal consolidation. Large right suprahilar calcified again visualized with calcified granuloma. Pleura: No effusion. No pneumothorax. Cardiomediastinal contours: Unremarkable Bones: No acute osseous abnormality. IMPRESSION: No acute cardiopulmonary disease. Large right suprahilar calcified again visualized with calcified granuloma. ATED BY: VALORIE HERR MD DICTATED DATE/TIME: 09/19/25933 SIGNED BY: VALORIE HERR MD SIGNED DATE/TIME: 09/19/25933 CC: Time of 1ST Reevaluation: 10:28 Reevaluation 1ST: Unchanged Patient Education/Counseling: Diagnosis, Treatment, Prognosis Family Education/Counseling: No Family Present SEPSIS Sepsis Screen Date sepsis recognized/suspect: Sep 19, 2025 Time Sepsis recognized/suspect: 0834 Recent Procedure: No On Antibiotic Therapy: No Respiratory Rate >20: No Heart Rate >90: No Temp<36 C (96.8 F) or >38.3 C: No SBP <90 or MAP <65 mmHG: No New Acute Mental Status Change: No Is the patient on CPAP, BIPAP,: No Physician Orders Urinalysis (09/19/25 09:03) Chest Portable (09/19/25 09:03) Troponin-I Hs (09/19/25 12:03) Electrocardigram (09/19/25 10:03) Electrocardigram (09/19/25 12:03) Vital Signs Date Time Temp Pulse Resp B/P (MAP) Pulse Ox O2 Delivery O2 Flow Rate FiO2 09/19/25 08:43 56 09/19/25 08:33 97.4 77 17 130/74 97 97.4 Laboratory Tests Test 09/19/25 09:24 White Blood Count 5.4 10^3/uL (4.4-10.8) Departure 1 Departure Time of Disposition: 13:45 (? High Complexity ProblemsAcute illness posing threat to life or bodily function (suspected ACS)? High Complexity DataMultiple unique labsIndependent interpretation of X-ray and EKGDiscussion/coordination of care with admitting team? High Risk of Morbidity/MortalityDecision regarding hospitalizationCritical care performedPotential for sudden deteriorationMEDICAL DECISION MAKING (HIGH COMPLEXITY LEVEL 5):The patient presents with acute chest pain highly concerning for acute coronary syndrome (ACS), an acute illness with potential for significant morbidity and mortality. Despite a normal initial diagnostic workup, ACSincluding unstable anginacannot be excluded and remains the leading concern.Data Reviewed / Independent Interpretation:I independently reviewed and interpreted all labs and imaging. CBC and BMP were within normal limits. High-sensitivity troponin was normal, but a single normal value does not exclude ACS. Chest X-ray was independently reviewed by me and demonstrated no acute cardiopulmonary abnormalities. I independently reviewed the EKG, which showed normal sinus rhythm without ischemic changes.Despite these benign findings, the patient continues to describe exertional and pressure-like chest pain radiating in a pattern consistent with possible ACS. Unstable angina may present with normal biomarkers and nondiagnostic EKGs, and therefore this diagnosis remains a high-risk, active consideration.Differential Diagnosis & Management:The differential included ACS/unstable angina, pulmonary embolism, aortic dissection, pneumothorax, arrhythmia, and esophageal or musculoskeletal etiologies. Given the symptom pattern and cardiac risk profile, ACS remains the most concerning and cannot be safely ruled out in the ED. Serial troponins, telemetry monitoring, and further cardiac evaluationincluding possible stress testing or cardiology consultationare medically necessary.Risk / Disposition:Due to the ongoing concern for evolving cardiac ischemia, the inability to exclude ACS at this stage, and the potential for rapid deter ioration, I determined that inpatient admission is required for continued monitoring and further diagnostic evaluation. I discussed the case and plan of care with the admitting inpatient team. The patient understands and agrees with admission.CRITICAL CARE TIME: ___ MINUTESA total of ____ minutes of critical care time was provided, exclusive of separately billable procedures. Time was spent in high-intensity evaluation and management due to the risk of sudden clinical deterioration from suspected ACS. Activities included:Continuous cardiac monitoringSerial reassessment of vital signs and symptomsIndependent interpretation of EKG and imagingReview and integration of diagnostic dataCoordination of care and discussion with nursing and the admitting serviceDevelopment of treatment and monitoring planFrequent bedside reassessmentsCritical care services were medically necessary due to the immediate potential for life-threatening cardiac ischemia.) Impression: Primary Impression: Acute chest pain Additional Impression: Generalized weakness Disposition: ADMITTED INPATIENT Admit to: Tele Condition: Guarded Critical Care Note Critical Care Time?: Yes Stability Stability form required: No Heart Score Heart Score: Heart Score Response (Comments) Value History Moderate Suspicious 1 EKG Repolarization Disturb 1 Age >65 2 Risk Factors >3 or Hx ASHD 2 Troponin 1-2 x's Normal limit 1 Total 7 I personally scribed for ANDERS WEBB MD ([email or web address]) on 09/19/25 at 09:04. Electronically submitted by Patty Magana ([email or web address]). I personally scribed for ANDERS WEBB MD ([email or web address]) on 09/19/25 at 09:51. Electronically submitted by Patty Magana ([email or web address]). ANDERS WEBB MD Sep 19, 2025 09:04
--- NOTE | 2025-09-19 09:36 | DVH ---
EXAM: XY CHEST PORTABLE Indication: cp Technique: Single frontal view of the chest was obtained Comparison: CT CHEST WITH CONTRAST on DOS: 08/03/25, XY CHEST TWO VIEWS ROUTINE on DOS: 08/03/25 FINDINGS: Lines and Tubes: None Lungs: No focal consolidation. Large right suprahilar calcified again visualized with calcified granuloma. Pleura: No effusion. No pneumothorax. Cardiomediastinal contours: Unremarkable Bones: No acute osseous abnormality. IMPRESSION: No acute cardiopulmonary disease. Large right suprahilar calcified again visualized with calcified granuloma.
[2025-09-19 09:53] LABS: Hematocrit 41.9 % (36.0-46.0); Hemoglobin 14.1 g/dL (12.2-16.2); Mean Corpuscular Hemoglobin 30.0 pg (28.0-32.0); Mean Corpuscular Volume 89.5 fL (80.0-100.0); Nucleated Red Blood Cells % 0.1 %
[2025-09-19 09:59] LABS: Chloride 106 mmol/L (98-107); Potassium 3.6 mmol/L (3.5-5.1); Sodium 144 mmol/L (136-145)
[2025-09-19 10:00] LABS: Anion Gap 11 (5-15); Calcium 10.2 mg/dL (8.7-10.4); Carbon Dioxide 27 mmol/L (20-31)
[2025-09-19 10:05] LABS: BUN/Creatinine Ratio 8.2 (10.0-20.0); Glucose 98 mg/dL (74-106)
[2025-09-19 10:07] LABS: Blood Urea Nitrogen 8 mg/dL (9-23)
[2025-09-19] MEDS ORDERED: MORPHINE SULFATE INJ 2 MG/ml SYRG IV PRN (14:00)
[2025-09-19] MEDS ORDERED: ACETAMINOPHEN 325 MG TAB PO PRN (14:00)
[2025-09-19] MEDS ORDERED: ONDANSETRON HCL 4 MG/2 ML VIAL IV PRN (14:00)
--- NOTE | 2025-09-19 14:06 | DVHHPRES ---
History of Present Illness Resident Creating Document: LADI PEREYRA RESIDENT Review of Systems Allergies: Coded Allergies: NO KNOWN ALLERGIES (Unverified , 08/03/25) Exam Vital Signs Vital Signs Date Time Temp Pulse Resp B/P (MAP) Pulse Ox O2 Delivery O2 Flow Rate FiO2 09/19/25 08:43 56 09/19/25 08:33 97.4 17 130/74 97 97.4 Labs/Xrays Labs Test 09/19/25 13:10 09/19/25 09:28 09/19/25 09:24 Range/Units Troponin I High Sensitivity 28 </=34 ng/L Sodium Level 144 136-145 mmol/L Potassium Level 3.6 3.5-5.1 mmol/L Chloride Level 106 98-107 mmol/L Carbon Dioxide Level 27 20-31 mmol/L Anion Gap 11 5-15 Blood Urea Nitrogen 8 L 9-23 mg/dL Creatinine 0.98 0.550-1.02 mg/dL Glomerular Filtration Rate Calc 61 >90 mL/min BUN/Creatinine Ratio 8.2 L 10.0-20.0 Serum Glucose 98 74-106 mg/dL Calcium Level 10.2 8.7-10.4 mg/dL White Blood Count 5.4 4.4-10.8 10^3/uL Red Blood Count 4.69 4.0-5.20 10^6/uL Hemoglobin 14.1 12.2-16.2 g/dL Hematocrit 41.9 36.0-46.0 % Mean Corpuscular Volume 89.5 80.0-100.0 fL Mean Corpuscular Hemoglobin 30.0 28.0-32.0 pg Mean Corpuscular Hemoglobin Concent 33.5 32.0-36.0 g/dL Red Cell Distribution Width 13.7 11.8-14.3 % Platelet Count 237 140-450 10^3/uL Mean Platelet Volume 9.0 6.9-10.8 fL Neutrophils (%) (Auto) 56.1 37.0-80.0 % Lymphocytes (%) (Auto) 32.4 10.0-50.0 % Monocytes (%) (Auto) 9.0 0.0-12.0 % Eosinophils (%) (Auto) 1.5 0.0-7.0 % Basophils (%) (Auto) 1.0 0.0-2.0 % Neutrophils # (Auto) 3.0 1.6-8.6 10 ^3/uL Lymphocytes # (Auto) 1.7 0.4-5.4 10 ^3/uL Monocytes # (Auto) 0.5 0-1.3 10 ^3/uL Eosinophils # (Auto) 0.1 0-0.8 10 ^3/uL Basophils # (Auto) 0.1 0-0.2 10 ^3/uL Nucleated Red Blood Cells 0.1 % SEPSIS Sepsis Screen Date sepsis recognized/suspect: Sep 19, 2025 Time Sepsis recognized/suspect: 833 Recent Procedure: No On Antibiotic Therapy: No Respiratory Rate >20: No Heart Rate >90: No Temp<36 C (96.8 F) or >38.3 C: No SBP <90 or MAP <65 mmHG: No New Acute Mental Status Change: No Is the patient on CPAP, BIPAP,: No Physician Orders Urinalysis (09/19/25 09:03) Chest Portable (09/19/25 09:03) Electrocardigram (09/19/25 10:03) Electrocardigram (09/19/25 12:03) Vitamin D, 25-Hydroxy (09/19/25 13:56) Vitamin B12 (09/19/25 13:56) Urinalysis (09/19/25 13:56) Thyroid Stimulating Hormone (09/19/25 13:56) Phosphorus (09/19/25 13:56) Magnesium (09/19/25 13:56) Lipid Panel (09/19/25 13:56) Lipase (09/19/25 13:56) Hemoglobin A1c (09/19/25 13:56) Drug Screen (09/19/25 13:56) C-Reactive Protein (09/19/25 13:56) Admit (09/19/25 13:56) Code Status (09/19/25 13:56) Acetaminophen Tablet (Tylenol Tablet) (09/19/25 14:00) Ondansetron Hcl (Zofran) (09/19/25 14:00) Complete Blood Count (09/20/25 04:00) Comprehensive Metabolic Panel (09/20/25 04:00) Cardiac Diet-2gna,Lofat,Lochol (09/19/25 Dinner) Morphine Sulfate Injection (09/19/25 14:00) Lovenox 30mg (09/20/25 10:00) Oxygen By Nasal Cannula (09/19/25 13:56) Stat Ekg For Chest Pain (09/19/25 13:56) Notify Of Changes From Base (09/19/25 13:56) Engineer Technical Staff For 24 Hours (09/19/25 13:56) Emergency Dysrhythmia Protocol (09/19/25 13:56) Rhythm Strips Once Every Shift (09/19/25 13:56) Erythrocyte Sedimentation Rate (09/19/25 13:56) B-Type Natriuretic Peptide (09/19/25 13:56) Vital Signs Date Time Temp Pulse Resp B/P (MAP) Pulse Ox O2 Delivery O2 Flow Rate FiO2 09/19/25 08:43 56 09/19/25 08:33 97.4 77 17 130/74 97 97.4 Laboratory Tests Test 09/19/25 09:24 White Blood Count 5.4 10^3/uL (4.4-10.8) Assessment/Plan My Orders Orders - LADI PEREYRA RESIDENT Procedure Category Date Status Time Vitamin D, 25-Hydroxy LAB 09/19/25 Transmitted 13:56 Vitamin B12 LAB 09/19/25 Transmitted 13:56 Urinalysis LAB 09/19/25 Transmitted 13:56 Thyroid Stimulating LAB 09/19/25 Transmitted Hormone 13:56 Phosphorus LAB 09/19/25 Transmitted 13:56 Magnesium LAB 09/19/25 Transmitted 13:56 Lipid Panel LAB 09/19/25 Transmitted 13:56 Lipase LAB 09/19/25 Transmitted 13:56 Hemoglobin A1c LAB 09/19/25 Transmitted 13:56 Drug Screen LAB 09/19/25 Transmitted 13:56 C-Reactive Protein LAB 09/19/25 Transmitted 13:56 Admit ADMIT 09/19/25 Transmitted 13:56 Code Status CODE 09/19/25 Transmitted 13:56 Acetaminophen Tablet PHA 09/19/25 Transmitted (Tylenol Tablet) 14:00 Ondansetron Hcl PHA 09/19/25 Transmitted (Zofran) 14:00 Complete Blood Count LAB 09/20/25 Verified 04:00 Comprehensive LAB 09/20/25 Verified Metabolic Panel 04:00 Cardiac DIET 09/19/25 Transmitted Diet-2gna,Lofat,Lochol Dinner Morphine Sulfate PHA 09/19/25 Transmitted Injection 14:00 Lovenox 30mg PHA 09/20/25 Transmitted 10:00 Oxygen By Nasal RT 09/19/25 Transmitted Cannula 13:56 Stat Ekg For Chest [facility] 09/19/25 In Process Pain 13:56 Notify Md Of Changes [facility] 09/19/25 In Process From Base 13:56 Engineer Technical Staff For [facility] 09/19/25 In Process 24 Hours 13:56 Emergency Dysrhythmia [facility] 09/19/25 In Process Protocol 13:56 Rhythm Strips Once [facility] 09/19/25 In Process Every Shift 13:56 Erythrocyte LAB 09/19/25 Logged Sedimentation Rate 13:56 B-Type Natriuretic LAB 09/19/25 Logged Peptide 13:56 Date of Service: Sep 19, 2025 Billing Provider: YOVANI ELIAS DO Common Visit Codes: [id number] INP/OBS CARE (HIGH) Secondary Visit Codes: [id number] CARE PLAN 30 MINUTES LADI PEREYRA RESIDENT Sep 19, 2025 14:06
[2025-09-19 14:54] LABS: Triglycerides 150.0 mg/dL (< 150)
[2025-09-19 14:55] LABS: Magnesium 2.0 mg/dL (1.6-2.6)
[2025-09-19 14:56] LABS: Cholesterol 199.0 mg/dL (< 200); HDL Cholesterol 39.0 mg/dL (40-59)
[2025-09-19 15:11] LABS: Lipase 48.0 U/L (12-53)
[2025-09-20] MEDS ORDERED: ENOXAPARIN SOD 30 MG/0.3 ML SYRINGE SC SCH (10:00)
== END 2025-09-19 18:50 | disposition left against medical advice (07) ==
LOC: ER 08:32 → OVERFLOW 13:56 → UNDOADMIN 13:56 → ER 18:50
DX: R07.89 Other chest pain (principal); R53.1 Weakness; Z79.899 Other long term (current) drug therapy
CPT/HCPCS: 36415; 71045; 80048; 80061; 82306; 82607; 83036; 83690; 83735; 83880; 84100; 84443; 84484; 85025; 85652; 86141; 93005; A4344